=== PATIENT | female | born 1965 | race Caucasian/White ===

== ENCOUNTER → 2023-12-11 10:52 | Outpatient (REF) | payer OTHER, SELFPAY ==
[2023-12-11 12:44] LABS: Rubella Positive
[2023-12-11 13:06] LABS: Hepatitis B Surface Antibody Negative
[2023-12-13 15:09] LABS: Rubeola (Measles) IgG Positive; Varicella Zoster IgG (VZV) Positive
[2023-12-13 22:50] LABS: Quantiferon Mitogen minus NIL 9.94 IU/mL; Quantiferon NIL 0.06 IU/mL; Quantiferon Plus TB1 minus NIL 0.01 IU/mL (<=0.34); Quantiferon TB Gold Plus Negative (Negative)
== END ==
LOC: OHS 10:52
PROVIDERS: ATTENDING PHYSICIAN Nurse Practitioner Family
DX: Z23 Encounter for immunization (principal)
CPT/HCPCS: 36415; 86480; 86706; 86735; 86762; 86765; 86787

== ENCOUNTER → 2024-02-05 15:15 | Outpatient (REF) | payer BC, SELFPAY | LOC: CLAB 15:15 | PROVIDERS: Pathology Anatomic Pathology & Clinical Pathology; ATTENDING PHYSICIAN Physician Assistant Medical | DX: C44.519 Basal cell carcinoma of skin of other part of trunk (principal) | CPT/HCPCS: 88305 ==

== ENCOUNTER → 2024-03-11 10:40 | Outpatient (REF) | payer OTHER, SELFPAY ==
[2024-03-11 12:58] LABS: Hepatitis B Surface Antibody Positive
== END ==
LOC: OHS 10:40
PROVIDERS: ATTENDING PHYSICIAN Nurse Practitioner Family
DX: Z23 Encounter for immunization (principal)
CPT/HCPCS: 36415; 86706

== ENCOUNTER → 2024-03-11 10:58 | Outpatient (REF) | payer BC, SELFPAY | LOC: MRI 3T 10:58 | PROVIDERS: ATTENDING PHYSICIAN Family Medicine | DX: N83.8 Other noninflammatory disorders of ovary, fallopian tube and broad ligament (principal); R93.5 Abnormal findings on diagnostic imaging of other abdominal regions, including retroperitoneum | CPT/HCPCS: 72197; A9575 ==

== ENCOUNTER → 2024-06-12 09:46 | Outpatient (REF) | payer OTHER, BC, SELFPAY ==
[2024-06-12 10:23] LABS: % Basophils 0.9 % (0-2); % Eosinophils 1.9 % (0-6); % Immature Granulocytes 0.2 % (0-0.5); % Monocytes 6.5 % (1.7-9.3); % Neutrophils 41.5 % (42.2-75.2); Absolute Eosinophils 0.1 10^3/uL (0-0.7); Absolute Lymphocytes 2.1 10^3/uL (1.2-3.4); Absolute Monocytes 0.3 10^3/uL (0.1-0.6); Absolute Neutrophils 1.8 10^3/uL (1.4-6.5); Hemoglobin 13.7 g/dL (12.0-16.0); Mean Corp Hgb Conc. 33.4 g/dL (33.0-37.0); Mean Corpuscular Volume 89.7 fL (81.0-99.0); Mean Platelet Volume 10.4 fL (7.4-10.4); Nucleated Red Blood Cells % 0 %; Platelet Count 267 10^3/uL (130-400); Red Blood Cell Count 4.57 10^6/uL (4.20-5.40); Red Cell Dist. Width 12.7 % (11.5-14.5); White Blood Cell Count 4.3 10^3/uL (4.8-10.8)
[2024-06-12 11:24] LABS: ALT (SGPT) 17 U/L (0-35); AST (SGOT) 21 U/L (14-36); Albumin 4.2 g/dl (3.5-5.0); Alkaline Phosphatase 57 U/L (38-126); Blood Urea Nitrogen 28 mg/dl (7-17); Calcium 9.6 mg/dl (8.4-10.2); Carbon Dioxide 27 mmol/L (22-30); Chloride 109 mmol/L (98-107); Glucose 103 mg/dl (70-99); Magnesium 2.5 mg/dl (1.6-2.3); Potassium 4.9 mmol/L (3.5-5.1); Sodium 142 mmol/L (135-145); Total Bilirubin 0.4 mg/dl (0.2-1.3); Total Protein 6.6 g/dl (6.3-8.2); Uric Acid 5.1 mg/dl (2.5-6.2); eGFR > 60.00
[2024-06-12 11:38] LABS: Free T4 0.98 ng/dl (0.78-2.19)
[2024-06-12 11:53] LABS: TSH 1.34 uIU/ml (0.47-4.68)
[2024-06-12 12:51] LABS: Glycohemoglobin (HgbA1c) 5.4 % (4.0-5.6)
[2024-06-13 16:10] LABS: Insulin, Random 10 uIU/mL
[2024-06-14 02:50] LABS: Lipoprotein a (Lp a) <6 mg/dL (<=29)
== END ==
LOC: REG 09:46
PROVIDERS: ATTENDING PHYSICIAN Physician Assistant; FAMILY PHYSICIAN Family Medicine
DX: E78.00 Pure hypercholesterolemia, unspecified (principal); R78.0 Finding of alcohol in blood; R53.83 Other fatigue; L83 Acanthosis nigricans; R63.2 Polyphagia; E66.01 Morbid (severe) obesity due to excess calories
CPT/HCPCS: 36415; 80053; 80061; 83036; 83525; 83695; 83704; 83735; 84439; 84443; 84550; 85025